=== PATIENT | female | born 1980 | race Caucasian/White ===

== ENCOUNTER 2021-04-07 23:36 | Emergency (ER) | payer BC ==
[2021-04-08] MEDS: Sodium Chloride 0.9% 10 ML Syringe FLUSH PRN (00:04)
[2021-04-08] MEDS: Ondansetron 4 MG/2 ML SDV IVPUSH ONE (00:25)
[2021-04-08] MEDS: HYDROmorphone 1 MG/ML Syringe IVPUSH ONE (00:25)
--- NOTE | 2021-04-08 00:35 | EDM.PDOC ---
ED HPI GENERAL MEDICAL PROBLEM - General Chief Complaint: Abdominal Pain Stated Complaint: ABD PAIN Time Seen by Provider: 04/07/21 23:42 Source of Information: Reports: Patient History Limitations: Reports: No Limitations - History of Present Illness INITIAL COMMENTS - FREE TEXT/NARRATIVE: Ebonie is a 41-year-old female presenting to the ED for evaluation of acute onset of severe epigastric pain. Patient was in her usual state of health and ate dinner. left to go fishing for an hour or so and when he came back he found her laying in bed with complaint of severe abdominal pain. She had a normal bowel movement today. She has been passing gas without difficulty. She has some nausea but denies any vomiting. She has been afebrile. The pain is constant and unrelenting. She rates it at a 9 out of 10 in intensity. Patient has a history of an appendectomy but still has her gallbladder. She denies any alcohol intake. She has not had issues with her gallbladder in the past. Her sisters had her gallbladder removed for cholelithiasis. middle upper abd Pain Score (Numeric/FACES): 9 - Related Data Allergies Allergy/AdvReac Type Severity Reaction Status Date / Time No Known Allergies Allergy Verified 04/07/21 23:55 Home Meds: Home Meds NK [No Known Home Meds] 04/07/21 [History] Past Medical History - Infectious Disease History Infectious Disease History: Reports: Chicken Pox - Past Surgical History GI Surgical History: Reports: Appendectomy Social & Family History - Tobacco Use Tobacco Use Status *Q: Never Tobacco User - Recreational Drug Use Recreational Drug Use: No ED ROS GENERAL - Review of Systems Review Of Systems: See Below Constitutional: Reports: Diaphoresis HEENT: Reports: No Symptoms Respiratory: Reports: No Symptoms Cardiovascular: Reports: No Symptoms Endocrine: Reports: No Symptoms GI/Abdominal: Reports: Abdominal Pain, Decreased Appetite, Flatus, Nausea. Denies: Constipation, Diarrhea : Reports: No Symptoms Musculoskeletal: Reports: No Symptoms Skin: Reports: No Symptoms Neurological: Reports: No Symptoms Psychiatric: Reports: Anxiety Hematologic/Lymphatic: Reports: No Symptoms Immunologic: Reports: No Symptoms ED EXAM, GI/ABD - Physical Exam Exam: See Below Exam Limited By: No Limitations General Appearance: Alert, Anxious, Moderate Distress Eyes: Bilateral: EOMI Throat/Mouth: Normal Inspection, Normal Lips, Normal Oropharynx, Normal Voice, No Airway Compromise Head: Atraumatic, Normocephalic Neck: Normal Inspection, Supple, Non-Tender, Full Range of Motion. No: Lymphadenopathy (R), Lymphadenopathy (L) Respiratory/Chest: No Respiratory Distress, Lungs Clear, Normal Breath Sounds Cardiovascular: Normal Peripheral Pulses, Regular Rate, Rhythm, No Murmur GI/Abdominal Exam: No Distention (No tympany to percussion throughout the abdomen), Guarding (Guarding over the epigastric region), Tender (Moderate to severe tenderness with palpation over the epigastric region.), Abnormal Bowel Sounds (Diminished bowel sounds). No: Rebound Back Exam: Normal Inspection Extremities: Normal Inspection, No Pedal Edema Neurological: Alert, Oriented, Normal Cognition, No Motor/Sensory Deficits Psychiatric: Anxious Skin Exam: Warm, Dry, Intact, Normal Color, No Rash Course - Vital Signs Last Recorded V/S: Last Vital Signs Temp 36.9 C 04/07/21 23:58 Pulse 61 04/08/21 01:07 Resp 14 04/08/21 01:07 BP 142/91 H 04/08/21 01:07 Pulse Ox 97 04/08/21 01:07 - Orders/Labs/Meds Orders: Active Orders 24 hr Category Date Time Status Abdomen Pelvis w Cont [CT] Stat Exams 04/08/21 00:35 Taken Sodium Chloride 0.9% [Normal Saline] 75 ml Med 04/08/21 01:15 Active IV ASDIRECTED Sodium Chloride 0.9% [Saline Flush] Med 04/07/21 23:43 Active 10 ml FLUSH ASDIRECTED PRN Saline Lock Insert [OM.PC] Routine Oth 04/07/21 23:43 Ordered Medication Orders Sodium Chloride (Normal Saline) 75 mls @ 3.5 mls/sec IV ASDIRECTED KEENAN Last Admin: 04/08/21 01:59 Dose: 3 mls/sec Documented by: HUY Sodium Chloride (Sodium Chloride 0.9% 10 Ml Syringe) 10 ml FLUSH ASDIRECTED PRN PRN Reason: Keep Vein Open Last Admin: 04/08/21 00:04 Dose: 10 ml Documented by: PAMELA Labs: Laboratory Tests 04/07/21 04/07/21 04/07/21 Range/Units 23:52 23:52 23:52 WBC 8.0 (4.5-11.0) K/uL RBC 4.05 (3.30-5.50) M/uL Hgb 11.7 L (12.0-15.0) g/dL Hct 35.2 L (36.0-48.0) % MCV 87 (80-98) fL MCH 29 (27-31) pg MCHC 33 (32-36) % Plt Count 302 (150-400) K/uL Neut % (Auto) 54.8 (36-66) % Lymph % (Auto) 35.3 (24-44) % [place] % (Auto) 7.5 H (2-6) % Eos % (Auto) 1.8 L (2-4) % Baso % (Auto) 0.6 (0-1) % Sodium 140 (140-148) mmol/L Potassium 3.7 (3.6-5.2) mmol/L Chloride 105 (100-108) mmol/L Carbon Dioxide 23 (21-32) mmol/L Anion Gap 11.8 (5.0-14.0) mmol/L BUN 13 (7-18) mg/dL Creatinine 0.9 (0.6-1.0) mg/dL Est Cr Clr Drug Dosing 79.99 mL/min Estimated GFR (MDRD) > 60 (>60) Glucose 127 H (74-106) mg/dL Lactic Acid 0.9 (0.4-2.0) mmol/L Calcium 8.4 L (8.5-10.1) mg/dL Total Bilirubin 0.1 L (0.2-1.0) mg/dL AST 12 L (15-37) U/L ALT 19 (12-78) U/L Alkaline Phosphatase 95 (46-116) U/L C-Reactive Protein 0.20 (0.0-0.3) mg/dL Total Protein 6.7 (6.4-8.2) g/dL Albumin 3.3 L (3.4-5.0) g/dL Globulin 3.4 (2.3-3.5) g/dL Albumin/Globulin Ratio 1.0 L (1.2-2.2) Lipase 240 (73-393) U/L Urine Color (YELLOW) Urine Appearance (CLEAR) Urine pH (5.0-8.0) Ur Specific [place] (1.008-1.030) Urine Protein (NEGATIVE) mg/dL Urine Glucose (UA) (NEGATIVE) mg/dL Urine Ketones (NEGATIVE) mg/dL Urine Occult Blood (NEGATIVE) Urine Nitrite (NEGATIVE) Urine Bilirubin (NEGATIVE) Urine Urobilinogen (0.2-1.0) EU/dL Ur Leukocyte Esterase (NEGATIVE) Urine RBC (0-5) Urine WBC (0-5) Ur Epithelial Cells Amorphous Sediment Urine Bacteria Urine Mucus 04/08/21 Range/Units 01:07 WBC (4.5-11.0) K/uL RBC (3.30-5.50) M/uL Hgb (12.0-15.0) g/dL Hct (36.0-48.0) % MCV (80-98) fL MCH (27-31) pg MCHC (32-36) % Plt Count (150-400) K/uL Neut % (Auto) (36-66) % Lymph % (Auto) (24-44) % [place] % (Auto) (2-6) % Eos % (Auto) (2-4) % Baso % (Auto) (0-1) % Sodium (140-148) mmol/L Potassium (3.6-5.2) mmol/L Chloride (100-108) mmol/L Carbon Dioxide (21-32) mmol/L Anion Gap (5.0-14.0) mmol/L BUN (7-18) mg/dL Creatinine (0.6-1.0) mg/dL Est Cr Clr Drug Dosing mL/min Estimated GFR (MDRD) (>60) Glucose (74-106) mg/dL Lactic Acid (0.4-2.0) mmol/L Calcium (8.5-10.1) mg/dL Total Bilirubin (0.2-1.0) mg/dL AST (15-37) U/L ALT (12-78) U/L Alkaline Phosphatase (46-116) U/L C-Reactive Protein (0.0-0.3) mg/dL Total Protein (6.4-8.2) g/dL Albumin (3.4-5.0) g/dL Globulin (2.3-3.5) g/dL Albumin/Globulin Ratio (1.2-2.2) Lipase (73-393) U/L Urine Color Yellow (YELLOW) Urine Appearance Cloudy A (CLEAR) Urine pH 7.0 (5.0-8.0) Ur Specific [place] 1.025 (1.008-1.030) Urine Protein Negative (NEGATIVE) mg/dL Urine Glucose (UA) Negative (NEGATIVE) mg/dL Urine Ketones Negative (NEGATIVE) mg/dL Urine Occult Blood Negative (NEGATIVE) Urine Nitrite Negative (NEGATIVE) Urine Bilirubin Negative (NEGATIVE) Urine Urobilinogen 0.2 (0.2-1.0) EU/dL Ur Leukocyte Esterase Negative (NEGATIVE) Urine RBC 0-5 (0-5) Urine WBC 0-5 (0-5) Ur Epithelial Cells Rare Amorphous Sediment Moderate Urine Bacteria Many Urine Mucus Not seen Meds: Medications Generic Name Dose Route Start Last Admin Trade Name Freq PRN Reason Stop Dose Admin Sodium Chloride 75 mls @ 3.5 mls/sec 04/08/21 01:15 04/08/21 01:59 Normal Saline IV 3 mls/sec ASDIRECTED KEENAN Administration Sodium Chloride 10 ml 04/07/21 23:43 04/08/21 00:04 Sodium Chloride 0.9% 10 Ml Syringe FLUSH 10 ml ASDIRECTED PRN Administration Keep Vein Open Discontinued Medications Generic Name Dose Route Start Last Admin Trade Name Freq PRN Reason Stop Dose Admin Al Hydroxide/Mg Hydroxide 15 0 ml 04/08/21 02:01 ml/ Lidocaine HCl 15 ml PO 04/08/21 02:02 ONETIME ONE Hydromorphone HCl 1 mg 04/08/21 00:04 04/08/21 00:25 Hydromorphone 1 Mg/Ml Syringe IVPUSH 04/08/21 00:05 1 mg ONETIME ONE Administration Iopamidol 116 ml 04/08/21 01:15 04/08/21 01:59 Iopamidol 612 Mg/Ml 500 Ml Multipack Bottle IV 04/08/21 01:16 116 ml ONETIME ONE Administration Ondansetron HCl 4 mg 04/08/21 00:04 04/08/21 00:25 Ondansetron 4 Mg/2 Ml Sdv IVPUSH 04/08/21 00:05 4 mg ONETIME ONE Administration Sodium Chloride 10 ml 04/08/21 01:15 04/08/21 01:59 Sodium Chloride 0.9% 10 Ml Syringe FLUSH 04/08/21 01:16 10 ml ONETIME ONE Administration - Re-Assessments/Exams Free Text/Narrative Re-Assessment/Exam: 04/08/21 00:34 I reviewed the patient's labs including CBC, comprehensive metabolic panel, lipase, lactate, and C-reactive protein. All labs are normal with the exception of a calcium of 8.4. The patient was given Dilaudid 1 mg IV and Zofran 4 mg IV for pain and nausea. 04/08/21 02:[address] of the abdomen and pelvis with contrast. Upon returning from CT, she has recurrence of her abdominal pain and was given a GI cocktail. Based on her symptoms, I am concerned that there may be acute gastritis as the cause for her symptoms. She does have a large amount of flatus and stool in her colon but this is predominantly in the ascending and transverse colon with a completely decompressed descending and sigmoid colon. There is no evidence for obstruction. The stomach appears to be quite distended with food. I reviewed the report on the CT of the abdomen and pelvis. The patient does have 1 very large gallstone and a markedly distended gallbladder. This was the only significant finding on the CT and is likely the nidus for her right upper quadrant epigastric pain. The stone is large enough that it is unlikely that it will ever leave the gallbladder, however, it is acting like a ball-valve causing biliary colic. Essentially, the patient has symptomatic cholelithiasis. We discussed management of this including a small amount of hydrocodone for breakthrough pain with the primary pain management being diet control avoiding fried or fatty foods, using ibuprofen or Tylenol as the base of pain control. The patient lives down in the [facility] and will follow up with her primary care provider to discuss surgical options for cholecystectomy for symptomatic cholelithiasis. Certainly this is does not need to be done emergently. Indications return to the ED were discussed and the patient was discharged in satisfactory condition. Departure - Departure Time of Disposition: 02:39 Disposition: Home, Self-Care 01 Clinical Impression: Symptomatic cholelithiasis - Discharge Information Instructions: Cholelithiasis Referrals: PCP,None [Primary Care Provider] - Forms: ED Department Discharge Care Plan Goals: Your work-up today has shown a rather sizable gallstone that is acting like a ball valve to your gallbladder prohibiting it from emptying in response to eating a fried or fatty meal. This is what we termed as symptomatic cholelithiasis. It is unlikely that the stone will ever leave the gallbladder as it is quite sizable at 2 cm when your common bile duct is only 0.5 cm, however, every time the gallbladder contracts it has a possibility of forcing the stone down to the neck of the gallbladder causing a blockage and causing the gallbladder to continue to try to empty. This is likely what caused her significant pain today. Without question, the gallbladder will need to be removed but this could be in the next several weeks to months. That is unless you become more symptomatic on an ongoing basis. Return to the ER immediately should you develop any fever or chills as this could indicate an infected gallbladder which could be much more significant and severe. Sepsis Event Note (ED) - Evaluation Sepsis Screening Result: No Definite Risk - Focused Exam Vital Signs: Vital Signs Temp Pulse Resp BP Pulse Ox 04/08/21 01:07 61 14 142/91 H 97 04/07/21 23:58 36.9 C 84 20 158/100 H 98 - Problem List & Annotations (1) Symptomatic cholelithiasis SNOMED Code(s): 159421413, 933916152 Code(s): K80.20 - CALCULUS OF GALLBLADDER W/O CHOLECYSTITIS W/O OBSTRUCTION Status: Acute Priority: High Current Visit: Yes - Problem List Review Problem List Initiated/Reviewed/Updated: Yes - My Orders Last 24 Hours: My Active Orders 04/07/21 23:43 Sodium Chloride 0.9% [Saline Flush] 10 ml FLUSH ASDIRECTED PRN Saline Lock Insert [OM.PC] Routine 04/08/21 00:35 Abdomen Pelvis w Cont [CT] Stat 04/08/21 01:15 Sodium Chloride 0.9% [Normal Saline] 75 ml IV ASDIRECTED - Assessment/Plan Last 24 Hours: My Active Orders 04/07/21 23:43 Sodium Chloride 0.9% [Saline Flush] 10 ml FLUSH ASDIRECTED PRN Saline Lock Insert [OM.PC] Routine 04/08/21 00:35 Abdomen Pelvis w Cont [CT] Stat 04/08/21 01:15 Sodium Chloride 0.9% [Normal Saline] 75 ml IV ASDIRECTED
[2021-04-08] MEDS: Iopamidol 612 MG/ML 500 ML Multipack Bottle IV ONE (01:59)
[2021-04-08] MEDS: Sodium Chloride 0.9% 75 ML IV SCH (01:59)
[2021-04-08] MEDS: Sodium Chloride 0.9% 10 ML Syringe FLUSH ONE (01:59)
[2021-04-08] MEDS: Alum Hydrox/Mag Hydrox/Simeth 15 ML, Lidocaine 2% 15 ML PO ONE ×2 (02:19)
--- NOTE | 2021-04-08 02:21 | CRLCT ---
For Patients: As a result of the Century Cures Act, medical imaging exams and procedure reports are released immediately into your electronic medical record. You may view this report before your referring provider. If you have questions, please contact your health care provider. INDICATION: Acute epigastric pain TECHNIQUE: Axial images were obtained from the diaphragm to the pubic symphysis. Reformats were obtained in the coronal and sagittal plane. IV Contrast: 116 cc Isovue-300 Oral Contrast: None COMPARISON: None. FINDINGS: Lower chest: Unremarkable. Liver: Unremarkable. Normal in size and attenuation. No masses. Gallbladder and bile ducts: Cholelithiasis with gallbladder distention. Spleen: Unremarkable. Normal in size without mass. Pancreas: Unremarkable. No mass or inflammation. Adrenal glands: Unremarkable. No nodules. Kidneys: Unremarkable. No masses, stones, or hydronephrosis. Vasculature: Unremarkable. GI tract: The stomach is unremarkable. No dilated loops of large or small intestine. Pelvis: Trace free fluid deep pelvis. Bladder is unremarkable. Bones: Unremarkable for age. IMPRESSION: 1. No dilated bowel or localized inflammation. 2. Cholelithiasis with gallbladder distention. If there is pain localized in the right upper quadrant, ultrasound may be helpful to assess for cholecystitis. Please note that all CT scans at this facility use dose modulation, iterative reconstruction, and/or weight-based dosing when appropriate to reduce radiation dose to as low as reasonably achievable. Dictated by Kit Bloom MD @ 04/08/2021 2:20:[address] Kit Bloom @ Apr 08 2021 2:20AM
== END 2021-04-08 03:11 | disposition home or self-care (01) ==
LOC: JP.ED 23:36
DX: K80.20 Calculus of gallbladder without cholecystitis without obstruction (principal)
CPT/HCPCS: 36415; 74177; 80053; 81001; 83605; 83690; 85025; 86140; 96374; 96375; 99284; A9270; J1170; J2405; Q9967

== ENCOUNTER 2021-04-25 08:37 | Emergency (ER) | payer BC ==
[2021-04-25] MEDS ORDERED: Acetaminophen 325 MG Tab PO ONE (09:11)
--- NOTE | 2021-04-25 09:15 | EDM.PDOC ---
ED HPI GENERAL MEDICAL PROBLEM - General Chief Complaint: ENT Problem Stated Complaint: PASSED OUT AND HIT HEAD ON CONCRETE/CUT ON NOSE Time Seen by Provider: 04/25/21 09:04 Source of Information: Reports: Patient, Family, RN Notes Reviewed History Limitations: Reports: No Limitations - History of Present Illness INITIAL COMMENTS - FREE TEXT/NARRATIVE: 41-year-old female presents emergency department day complaint of a fall yesterday, she had injured herself yesterday stood up and then passed out hitting the ground landing predominantly on her head. She does admit to consu wandy some alcohol yesterday felt no palpitations at the time did have some nausea and vomiting for about 24 hours a couple days prior so there is a possibility she may have been dehydrated. At this time she is complaining of facial pain and headache no nausea no vomiting no shortness of breath or chest pain. Nose Pain Score (Numeric/FACES): 5 - Related Data Allergies Allergy/AdvReac Type Severity Reaction Status Date / Time No Known Allergies Allergy Verified 04/25/21 08:53 Home Meds: Home Meds NK [No Known Home Meds] 04/07/21 [History] Past Medical History Gastrointestinal History: Reports: Cholelithiasis - Infectious Disease History Infectious Disease History: Reports: Chicken Pox - Past Surgical History GI Surgical History: Reports: Appendectomy Social & Family History - Tobacco Use Tobacco Use Status *Q: Never Tobacco User - Recreational Drug Use Recreational Drug Use: No ED ROS ENT - Review of Systems Review Of Systems: See Below Constitutional: Reports: No Symptoms HEENT: Reports: Other (Facial pain bridge of the nose) Respiratory: Reports: No Symptoms Cardiovascular: Reports: Syncope GI/Abdominal: Reports: No Symptoms Musculoskeletal: Reports: No Symptoms Skin: Reports: Wound Neurological: Reports: Headache, Syncope ED EXAM, ENT - Physical Exam Exam: See Below Exam Limited By: No Limitations General Appearance: Alert, WD/WN, No Apparent Distress Eye Exam: Bilateral Eye: EOMI, Normal Inspection, PERRL Ears: Normal External Exam, Normal Canal, Hearing Grossly Normal, Normal TMs Nose: Normal Inspection, Normal Mucousa, No Blood. No: Septal Hematoma Mouth/Throat: Normal Inspection, Normal Gums, Normal Lips, Normal Oropharynx, Normal Teeth Head: Atraumatic, Normocephalic, Facial Ecchymosis, Facial Lacerations (Bridge of the nose) Neck: Normal Inspection, Supple, Non-Tender, Full Range of Motion Respiratory/Chest: No Respiratory Distress, Lungs Clear, Normal Breath Sounds, No Accessory Muscle Use, Chest Non-Tender Cardiovascular: Regular Rate, Rhythm, No Murmur Extremities: Normal Inspection, No Pedal Edema Neurological: Alert, Oriented, CN II-XII Intact, Normal Cognition, Normal Gait, No Motor/Sensory Deficits #1 Interpretation EKG Date: 04/25/21 Time: 10:19 Rhythm: NSR [place]: Normal P-Wave: Present QRS: Normal ST-T: Normal QT: Normal Comparison: NA - No Prior EKG Course - Vital Signs Last Recorded V/S: Last Vital Signs Temp 97.9 F 04/25/21 08:58 Pulse 90 04/25/21 08:58 Resp 16 04/25/21 08:58 BP 133/79 04/25/21 08:58 Pulse Ox 100 04/25/21 08:58 - Orders/Labs/Meds Orders: Active Orders 24 hr Category Date Time Status EKG 12 Lead [EK] Stat Ther 04/25/21 09:11 Ordered Labs: Laboratory Tests 04/25/21 04/25/21 Range/Units 09:25 09:25 WBC 7.3 (4.5-11.0) K/uL RBC 4.28 (3.30-5.50) M/uL Hgb 12.3 (12.0-15.0) g/dL Hct 37.1 (36.0-48.0) % MCV 87 (80-98) fL MCH 29 (27-31) pg MCHC 33 (32-36) % Plt Count 279 (150-400) K/uL Neut % (Auto) 72.9 H (36-66) % Lymph % (Auto) 13.2 L (24-44) % [place] % (Auto) 13.6 H (2-6) % Eos % (Auto) 0.0 L (2-4) % Baso % (Auto) 0.3 (0-1) % Sodium 136 L (140-148) mmol/L Potassium 3.6 (3.6-5.2) mmol/L Chloride 101 (100-108) mmol/L Carbon Dioxide 23 (21-32) mmol/L Anion Gap 15.6 H (5.0-14.0) mmol/L BUN 7 (7-18) mg/dL Creatinine 0.8 (0.6-1.0) mg/dL Est Cr Clr Drug Dosing 86.63 mL/min Estimated GFR (MDRD) > 60 (>60) Glucose 104 (74-106) mg/dL Calcium 8.2 L (8.5-10.1) mg/dL Meds: Medications Discontinued Medications Generic Name Dose Route Start Last Admin Trade Name Freq PRN Reason Stop Dose Admin Acetaminophen 650 mg 04/25/21 09:11 04/25/21 09:23 Acetaminophen 325 Mg Tab PO 04/25/21 09:12 650 mg NOW ONE Administration Departure - Departure Time of Disposition: 10:49 Disposition: Home, Self-Care 01 Condition: Fair Clinical Impression: Head injury Qualifiers: Encounter type: initial encounter Qualified Code(s): S09.90XA - Unspecified injury of head, initial encounter Laceration of nose Qualifiers: Encounter type: initial encounter Qualified Code(s): S01.21XA - Laceration without foreign body of nose, initial encounter - Discharge Information Instructions: Head Injury, Adult, Facial Laceration Referrals: PCP,None [Primary Care Provider] - Forms: ED Department Discharge Additional Instructions: Continue to use Tylenol as needed for pain control follow-up with primary care as needed call return to the emergency department worsening of symptoms Sepsis Event Note (ED) - Evaluation Sepsis Screening Result: No Definite Risk - Focused Exam Vital Signs: Vital Signs Temp Pulse Resp BP Pulse Ox 04/25/21 08:58 97.9 F 90 16 133/79 100 04/25/21 08:49 97.9 F 90 16 133/79 100 - My Orders Last 24 Hours: My Active Orders 04/25/21 09:11 EKG 12 Lead [EK] Stat - Assessment/Plan Last 24 Hours: My Active Orders 04/25/21 09:11 EKG 12 Lead [EK] Stat Plan: Assessment Acuity = acute Site and laterality = syncopal event with fall causing head injury Etiology = unknown Manifestations = headache, facial laceration without repair Location of injury = Home Lab values = CBC, BMP unremarkable CT scan of the head Facility: [facility] Site . Site : 1980 Study: CT Head -04/25/2021 10:07:08 AM Ordering Physician: Officer Everardo Final Report: INDICATION: Fall. TECHNIQUE: Noncontrast CT images were acquired through the brain. COMPARISON: None. FINDINGS: The ventricles and sulci are within normal limits for patient age. No mass effect or midline shift. The restrepo white differentiation is maintained. No acute intracranial hemorrhage or pathologic extra-axial fluid collection. The globes are symmetric. The calvarium is intact. Mild mucosal thickening in the posterior left ethmoid air cells. The mastoid air cells are clear. IMPRESSION: No acute intracranial hemorrhage or mass effect. Study: CT Facial -04/25/2021 10:05:46 AM Ordering Physician: Officer Everardo [id number] Final Report: INDICATION Fall. TECHNIQUE Noncontrast CT images were acquired through the facial bones. COMPARISON None. FINDINGS The facial bones are intact. No acute fracture or dislocation. No soft tissue hematoma. The globes, extraocular muscles, and optic nerve sheath complexes are symmetric. Mild mucosal thickening in the left maxillary sinus. Rightward nasal septal deviation. The mastoid air cells are clear. Right temporomandibular joint degenerative changes with flattening of the right mandibular condyle and subchondral cyst formation. IMPRESSION 1. No acute fracture or dislocation of the facial bones. 2. Right temporomandibular joint degenerative changes. Plan Follow-up with primary care as needed This note was dictated using [employer]ak[employer] voice recognition software please call with any questions on syntax or grammar.
--- NOTE | 2021-04-25 10:25 | CRLCT ---
For Patients: As a result of the Century Cures Act, medical imaging exams and procedure reports are released immediately into your electronic medical record. You may view this report before your referring provider. If you have questions, please contact your health care provider. INDICATION: Fall. TECHNIQUE: Noncontrast CT images were acquired through the brain. COMPARISON: None. FINDINGS: The ventricles and sulci are within normal limits for patient age. No mass effect or midline shift. The restrepo white differentiation is maintained. No acute intracranial hemorrhage or pathologic extra-axial fluid collection. The globes are symmetric. The calvarium is intact. Mild mucosal thickening in the posterior left ethmoid air cells. The mastoid air cells are clear. IMPRESSION: No acute intracranial hemorrhage or mass effect. Please note that all CT scans at this facility use dose modulation, iterative reconstruction, and/or weight-based dosing when appropriate to reduce radiation dose to as low as reasonably achievable. Dictated by Altaf Smith MD @ 04/25/2021 10:23:[address] Altaf Smith @ Apr 25 2021 10:23AM
--- NOTE | 2021-04-25 10:46 | CRLCT ---
For Patients: As a result of the Century Cures Act, medical imaging exams and procedure reports are released immediately into your electronic medical record. You may view this report before your referring provider. If you have questions, please contact your health care provider. INDICATION Fall. TECHNIQUE Noncontrast CT images were acquired through the facial bones. COMPARISON None. FINDINGS The facial bones are intact. No acute fracture or dislocation. No soft tissue hematoma. The globes, extraocular muscles, and optic nerve sheath complexes are symmetric. Mild mucosal thickening in the left maxillary sinus. Rightward nasal septal deviation. The mastoid air cells are clear. Right temporomandibular joint degenerative changes with flattening of the right mandibular condyle and subchondral cyst formation. IMPRESSION 1. No acute fracture or dislocation of the facial bones. 2. Right temporomandibular joint degenerative changes. Please note that all CT scans at this facility use dose modulation, iterative reconstruction, and/or weight-based dosing when appropriate to reduce radiation dose to as low as reasonably achievable. Dictated by Altaf Smith MD @ 04/25/2021 10:43:[address] Altaf Smith @ Apr 25 2021 10:43AM
== END 2021-04-25 10:53 | disposition home or self-care (01) ==
LOC: JP.ED 08:37
DX: S09.90XA Unspecified injury of head, initial encounter (principal); S01.21XA Laceration without foreign body of nose, initial encounter; W22.8XXA Striking against or struck by other objects, initial encounter
CPT/HCPCS: 36415; 70450; 70486; 80048; 85025; 93005; 99284; A9270